=== PATIENT | male | born 1990 | race American Indian/Alaskan Native ===

== ENCOUNTER 2019-11-20 16:50 | Emergency (ER) | payer MEDICAID ==
[2019-11-20 17:39] LABS: Basophils # (Auto) 0.1 K/mm3 (0.0-0.1); Basophils % (Auto) 0.9 % (0.0-1.8); Eosinophils % (Auto) 0.1 % (0.0-4.3); Hematocrit 41.3 % (35.5-45.6); Hemoglobin 13.8 gm/dl (11.8-15.2); Lymphocytes # (Auto) 1.2 K/mm3 (1.2-5.4); Lymphocytes % (Auto) 15.3 % (13.4-35.0); Mean Corpuscular HGB Conc 33 % (32-34); Mean Corpuscular Volume 84 fl (84-94); Monocytes # (Auto) 0.6 K/mm3 (0.0-0.8); Monocytes % (Auto) 7.6 % (0.0-7.3); Platelet Count 205 K/mm3 (140-440); Red Blood Count 4.91 M/mm3 (3.65-5.03); Red Cell Distribution Width 16.8 % (13.2-15.2)
[2019-11-20 18:04] LABS: Alanine Aminotransferase 27 units/L (7-56); Albumin 4.6 g/dL (3.9-5); BUN/Creatinine Ratio 11; Blood Urea Nitrogen 12 mg/dL (9-20); Calcium 9.4 mg/dL (8.4-10.2); Hemolysis Index 6
[2019-11-20 18:05] LABS: Bacteria,Urine 1+ /HPF (Negative); Bilirubin,Urine NEG (Negative); Blood,Urine NEG (Negative); Color,Urine Yellow (Yellow); Hyaline Casts,Urine 3 /LPF; Mucus,Urine 2+ /HPF; Protein,Urine <15 mg/dL mg/dL (Negative); Urobilinogen,Urine < 2.0 mg/dL (<2.0)
[2019-11-20] MEDS ORDERED: ONDANSETRON 4 MG/2 ML INJ IV ONE (18:05)
[2019-11-20] MEDS ORDERED: SODIUM CHLORIDE 0.9% 1000 ML 1,000 ML IV ONE (18:05)
[2019-11-20] MEDS ORDERED: FAMOTIDINE 20 MG/2 ML INJ IV ONE (18:05)
--- NOTE | 2019-11-20 18:12 | Emergency Department Report ---
Vomiting/Diarrhea - HPI Chief Complaint: Abdominal Pain Stated Complaint: STOMACH PAIN Time Seen by Provider: 11/20/19 17:45 Duration: Today Severity: mild Nausea/Vomiting Severity: Mild (2 episodes) Diarrhea Severity: None Pain Location: Periumbilical Pain Severity: Mild Symptoms: Yes Able to Tolerate Fluids, Yes Recent Unusual Foods (hot dog from [employer]), No Watery Diarrhea, No Bloody diarrhea, No Fever, No Recent Untreated Water, No Recent use of Antibiotics, No Family w/ Similar Symptoms, No Contacts w/ Similar Symptoms, No Rash, No Hematuria, No Recent URI Symptoms Other History: This 29-year-old male with no prior medical conditions presents the ED complaining of umbilical abdominal pain that began today this afternoon. Patient states this morning he ate 2 hotdogs from [employer]. Patient states he had 2 episodes of vomiting and other. Patient denies diarrhea, fever, chills, chest pain, shortness of breath. ED Review of Systems ROS: Stated complaint: STOMACH PAIN Other details as noted in HPI Comment: All other systems reviewed and negative ED Past Medical Hx - Past Medical History Previous Medical History?: No - Surgical History Past Surgical History?: Yes Additional Surgical History: left leg - Social History Smoking Status: Current Every Day Smoker Substance Use Type: Marijuana - Medications Home Medications: Home Medications Medication Instructions Recorded Confirmed Last Taken Type Ondansetron [Zofran Odt] 4 mg PO TID PRN #8 tab.rapdis 05/22/18 Unknown Rx Famotidine [Pepcid] 20 mg PO BID #20 tablet 11/20/19 Unknown Rx Ondansetron [Zofran ODT TAB] 8 mg PO Q12HR #20 tab.rapdis 11/20/19 Unknown Rx Vomiting Diarrhea Exam - Exam General: Vital signs noted. No distress. Alert and acting appropriately. HEENT: Yes Moist Mucous Membranes, No Pharyngeal Erythema, No Pharyngeal Exudates, No Rhinorrhea, No Conjuctival Injection, No Frontal Tenderness, No Maxillary Tenderness Neck: No Adenopathy, No Rigidity Lungs: Yes Clear Lung Sounds, Yes Good Air Exchange, No Wheezes, No Stridor, No Cough, No Nasal Flaring, No Retractions, No Use of Accessory Muscles Heart exam: Regular: Yes, Murmur: No, Tachycardia: No Abdomen: Tenderness: No (to all quadrants), Peritoneal Signs: No, Distention: No, Hyperactive Bowel sounds: No Skin exam: Rash: No, Edema: No, Normal turgor: Yes Neurologic: Alert and oriented, no deficits. Musculoskeletal: Unremarkable. ED Course Vital Signs 11/20/19 11/20/19 11/20/19 16:53 16:54 17:32 Temperature 98.1 F 98.1 F 98.4 F Pulse Rate 114 H 113 H 104 H Respiratory 18 12 12 Rate Blood Pressure 115/76 129/73 Blood Pressure 115/76 [Left] O2 Sat by Pulse 100 97 94 Oximetry ED Medical Decision Making - Lab Data Result diagrams: 11/20/19 17:14 11/20/19 17:14 - Medical Decision Making This 29-year-old male who presented with mild gastroenteritis secondary to food toxin. All labs are within normal limits. Urinalysis normal. Patient received 1 L of fluids antiemetic and Pepcid in the ED. Patient reports feeling much better. Patient was not in any acute distress during ED stay patient had no vomiting episode during ED stay. Vital signs are normal. Patient is in no acute distress Discussed with patient to follow-up with primary care physician within 3 to 5 days. Discussed with patient if he has any worsening symptoms return to ED immediately Critical care attestation.: If time is entered above; I have spent that time in minutes in the direct care of this critically ill patient, excluding procedure time. ED Disposition Clinical Impression: Gastroenteritis due to food toxin Disposition: DC-01 TO HOME OR SELFCARE Is pt being admited?: No Does the pt Need Aspirin: No Condition: Stable Instructions: Food Poisoning (ED), Gastroenteritis (ED) Additional Instructions: Make sure to follow up with the primary care physician as discussed. Take your medications as you've been prescribed. If you have any worsening symptoms or develop new symptoms please return to ED immediately. Prescriptions: Famotidine [Pepcid] 20 mg PO BID #20 tablet Ondansetron [Zofran ODT TAB] 8 mg PO Q12HR #20 [email or web address] Referrals: PRIMARY CARE, [Primary Care Provider] - 3-5 Days [facility] [place] [Outside] - 3-5 Days [facility] [Outside] - 3-5 Days [facility] [Outside] - 3-5 Days Forms: Work/School Release Form(ED) Time of Disposition: 19:09
[2019-11-20 19:47] VITALS: BP 118/77
== END 2019-11-20 19:50 | disposition home or self-care (01) ==
LOC: ED 16:50
DX: A05.9 Bacterial foodborne intoxication, unspecified (principal); F17.200 Nicotine dependence, unspecified, uncomplicated; F12.10 Cannabis abuse, uncomplicated; Z79.899 Other long term (current) drug therapy
CPT/HCPCS: 36415; 80053; 81001; 85025; 96361; 96374; 96375; 99284; J2405; J7030; 83690

== ENCOUNTER 2020-02-12 19:19 | Emergency (ER) | payer MEDICAID ==
[2020-02-12 20:08] LABS: Basophils % (Auto) 0.4 % (0.0-1.8); Eosinophils # (Auto) 0.1 K/mm3 (0.0-0.4); Eosinophils % (Auto) 1.2 % (0.0-4.3); Hematocrit 39.2 % (35.5-45.6); Hemoglobin 12.8 gm/dl (11.8-15.2); Lymphocytes # (Auto) 1.8 K/mm3 (1.2-5.4); Mean Corpuscular HGB Conc 33 % (32-34); Mean Corpuscular Volume 85 fl (84-94); Monocytes # (Auto) 0.6 K/mm3 (0.0-0.8); Monocytes % (Auto) 10.8 % (0.0-7.3); Platelet Count 203 K/mm3 (140-440); Red Blood Count 4.59 M/mm3 (3.65-5.03); Red Cell Distribution Width 15.4 % (13.2-15.2)
[2020-02-12 20:27] LABS: Alanine Aminotransferase 29 units/L (7-56); Albumin 4.5 g/dL (3.9-5); BUN/Creatinine Ratio 13; Blood Urea Nitrogen 14 mg/dL (9-20); Hemolysis Index 5
[2020-02-12] MEDS ORDERED: FAMOTIDINE 20 MG/2 ML INJ IV ONE (22:20)
[2020-02-12] MEDS ORDERED: ONDANSETRON 4 MG/2 ML INJ IV ONE (22:21)
[2020-02-12] MEDS ORDERED: DICYCLOMINE 20 MG/2 ML INJ IM ONE (22:21)
[2020-02-12 23:15] LABS: Bilirubin,Urine NEG (Negative); Blood,Urine NEG (Negative); Color,Urine Yellow (Yellow); Mucus,Urine FEW /HPF; Protein,Urine <15 mg/dL mg/dL (Negative); WBC,Urine < 1.0 /HPF (0.0-6.0)
[2020-02-12 23:48] VITALS: BP 124/66
--- NOTE | 2020-02-13 00:17 | Emergency Department Report ---
ED Abdominal Pain HPI - General Chief Complaint: Abdominal Pain Stated Complaint: ABD PAIN Source: patient Mode of arrival: Ambulatory Limitations: No Limitations - History of Present Illness Initial Comments: Patient is a 29-year-old -[place] male with no past medical history presents to the ED with complaint of acute onset persistent diffuse abdominal pain with nausea and vomiting intermittently for the last 6 hours. Patient states that the symptoms began after he ate at a restaurant over 12 hours ago. Patient states that no one else that he knows has had similar symptoms. Patient states that he has not been able to keep anything else by mouth since the onset of the symptoms. Patient denies dizziness, syncope, diarrhea, chest pain, shortness of breath, fever, chills, headache, testicular pain, dysuria, urinary frequency and urgency or cough. MD Complaint: abdominal pain, other (nausea and vomiting) -: Sudden, hour(s) (6) Location: diffuse Radiation: none Migration to: no migration Severity: moderate Severity scale (0 -10): 5 Quality: cramping, aching Consistency: intermittent Improves With: nothing Worsens With: nothing Context: possible food poisoning Associated Symptoms: denies other symptoms, nausea, vomiting. denies: diarrhea, fever, chills, dysuria, hematemesis, hematochezia, melena, hematuria, syncope, other - Related Data Previous Rx's Medication Instructions Recorded Last Taken Type Ondansetron [Zofran Odt] 4 mg PO TID PRN #8 tab.rapdis 05/22/18 Unknown Rx Famotidine [Pepcid] 20 mg PO BID #20 tablet 11/20/19 Unknown Rx Ondansetron [Zofran ODT TAB] 8 mg PO Q12HR #20 tab.rapdis 11/20/19 Unknown Rx Dicyclomine [Bentyl] 20 mg PO Q6H PRN #24 tablet 02/13/20 Unknown Rx Famotidine [Pepcid] 20 mg PO Q12H #60 tablet 02/13/20 Unknown Rx Ondansetron [Zofran Odt] 4 mg PO Q6HR PRN #20 tab.rapdis 02/13/20 Unknown Rx Allergies Allergy/AdvReac Type Severity Reaction Status Date / Time No Known Allergies Allergy Verified 11/20/19 16:51 ED Review of Systems ROS: Stated complaint: ABD PAIN Other details as noted in HPI Constitutional: denies: chills, fever Eyes: denies: eye pain, eye discharge, vision change ENT: denies: ear pain, throat pain Respiratory: denies: cough, shortness of breath, wheezing Cardiovascular: denies: chest pain, palpitations Endocrine: no symptoms reported Gastrointestinal: abdominal pain, nausea, vomiting. denies: diarrhea Genitourinary: denies: urgency, dysuria Musculoskeletal: denies: back pain, joint swelling, arthralgia Skin: denies: rash, lesions Neurological: denies: headache, weakness, paresthesias Psychiatric: denies: anxiety, depression Hematological/Lymphatic: denies: easy bleeding, easy bruising ED Past Medical Hx - Past Medical History Previous Medical History?: No - Surgical History Past Surgical History?: Yes Additional Surgical History: left leg sx, 08/2019 "screws in leg" - Social History Smoking Status: Light Tobacco Smoker - Medications Home Medications: Home Medications Medication Instructions Recorded Confirmed Last Taken Type Ondansetron [Zofran Odt] 4 mg PO TID PRN #8 tab.rapdis 05/22/18 Unknown Rx Famotidine [Pepcid] 20 mg PO BID #20 tablet 11/20/19 Unknown Rx Ondansetron [Zofran ODT TAB] 8 mg PO Q12HR #20 tab.rapdis 11/20/19 Unknown Rx Dicyclomine [Bentyl] 20 mg PO Q6H PRN #24 tablet 02/13/20 Unknown Rx Famotidine [Pepcid] 20 mg PO Q12H #60 tablet 02/13/20 Unknown Rx Ondansetron [Zofran Odt] 4 mg PO Q6HR PRN #20 tab.rapdis 02/13/20 Unknown Rx ED Physical Exam - General Limitations: No Limitations General appearance: alert, in no apparent distress - Head Head exam: Present: atraumatic, normocephalic, normal inspection - Eye Eye exam: Present: normal appearance, PERRL, EOMI Pupils: Present: normal accommodation - ENT ENT exam: Present: normal exam, normal orophraynx, mucous membranes moist, TM's normal bilaterally, normal external ear exam - Neck Neck exam: Present: normal inspection, full ROM. Absent: tenderness - Respiratory Respiratory exam: Present: normal lung sounds bilaterally. Absent: respiratory distress, wheezes, rales, rhonchi, chest wall tenderness, accessory muscle use, decreased breath sounds - Cardiovascular Cardiovascular Exam: Present: normal rhythm, tachycardia, normal heart sounds. Absent: systolic murmur, diastolic murmur, rubs, gallop - GI/Abdominal GI/Abdominal exam: Present: soft, normal bowel sounds. Absent: tenderness, guarding, rebound, hyperactive bowel sounds, hypoactive bowel sounds, organomegaly - Extremities Exam Extremities exam: Present: normal inspection, full ROM, normal capillary refill - Back Exam Back exam: Present: normal inspection, full ROM. Absent: tenderness, CVA tenderness (R), CVA tenderness (L), muscle spasm, paraspinal tenderness, vertebral tenderness - Neurological Exam Neurological exam: Present: alert, oriented X3, CN II-XII intact, normal gait, reflexes normal - Psychiatric Psychiatric exam: Present: normal affect, normal mood - Skin Skin exam: Present: warm, dry, intact, normal color. Absent: rash ED Course Vital Signs 02/12/20 02/12/20 19:22 23:47 Temperature 98.4 F Pulse Rate 113 H 92 H Respiratory 20 16 Rate Blood Pressure 148/74 124/66 O2 Sat by Pulse 98 96 Oximetry ED Medical Decision Making - Lab Data Result diagrams: 02/12/20 19:52 02/12/20 19:52 - Medical Decision Making This is a 29-year-old -[place] male with no past medical history presents to the ED with complaint of acute onset persistent diffuse abdominal pain with nausea and vomiting intermittently for the last 6 hours. Patient states that the symptoms began after he ate at a restaurant over 12 hours ago. Patient states that no one else that he knows has had similar symptoms. Patient states that he has not been able to keep anything else by mouth since the onset of the symptoms. In the ED, patient is alert and oriented x3 and is not in distress, but tachycardic in triage. Patient eating chips during the physical exam and asking for blanket lights in the room to be turned off so he can sleep. Lab test results were reviewed and are all nonactionable. Patient was treated for nausea and vomiting, also given pain medication and antacids. On reevaluation, patient's symptoms resolved patient sleeping comfortably in the room but arousable. Patient was discharged home on antiemetics, antacids and pain medication and was advised to maintain a clear liquid diet for 12 to 24 hours, follow-up with his primary care physician in 5 to 7 days for reevaluation or return to the ED immediately if symptoms get worse. - Differential Diagnosis Gastroenteritis; GERD; Dyspepsia; Gastritis Critical care attestation.: If time is entered above; I have spent that time in minutes in the direct care of this critically ill patient, excluding procedure time. ED Disposition Clinical Impression: Nausea and vomiting in adult patient, Viral gastroenteritis Abdominal pain Qualifiers: Abdominal location: generalized Qualified Code(s): R10.84 - Generalized abdominal pain Disposition: TO HOME OR SELFCARE Is pt being admited?: No Does the pt Need Aspirin: No Condition: Stable Instructions: Abdominal Pain (ED), Gastroenteritis (ED), Acute Nausea and Vomiting (ED) Additional Instructions: Maintain a clear liquid diet for 12 to 24 hours, take medication as needed for pain and also for nausea and vomiting. Return to the ED immediately if symptoms get worse. Otherwise follow-up with your primary care physician in 5 to 7 days for reevaluation. Prescriptions: Dicyclomine [Bentyl] 20 mg PO Q6H PRN #24 tablet PRN Reason: abdominal pain Famotidine [Pepcid] 20 mg PO Q12H #60 tablet Ondansetron [Zofran Odt] 4 mg PO Q6HR PRN #20 tab.rapdis PRN Reason: Nausea Referrals: [facility] [Provider Group] - 3-5 Days Time of Disposition: 00:19 Print Language: [place]
== END 2020-02-13 00:32 | disposition home or self-care (01) ==
LOC: ED 19:19
DX: A08.4 Viral intestinal infection, unspecified (principal); Z79.899 Other long term (current) drug therapy
CPT/HCPCS: 36415; 80053; 81001; 83690; 85025; 96372; 96374; 96375; 99283; J0500; J2405